=== PATIENT | male | born 1950 | race Caucasian/White ===

== ENCOUNTER → 2016-12-07 | Outpatient (CLI) | payer OTHER ==
[~2016-12-07] MED LIST: CIAL2.5T PO; SIMV40TA2 PO; TAMS0.4C2 PO
--- NOTE | 2016-12-07 10:46 | REP ---
CERVICAL SPINE, SEVEN VIEWS: HISTORY: Spondylosis. There is no acute fracture. There is narrowing of the C4-5 through C6-7 intervertebral discs consistent with disc degeneration. Osteophytes are present on C3-6. There is narrowing of the right C3-5 and left C3-6 neural foramina secondary to uncinate process hypertrophy. There are 3 mm of anterior subluxation of C3 on 4. This is unchanged with flexion and extension. There are 2 mm of retrolisthesis of C4 on 5. This reduces with flexion and returns to 2 mm with extension. There is loss of the normal lordotic curve. IMPRESSION: Degenerative change as described above. Signed by Minor Smith MD 12/07/2016 10:53 A
--- NOTE | 2016-12-07 10:48 | REP ---
LUMBAR SPINE, SEVEN VIEWS: HISTORY: Spondylosis. There is no acute fracture or subluxation. There is an old compression fracture of the L1 vertebral body with minimal height loss. There is no acute fracture or subluxation. The lumbar intervertebral discs are decreased in height. Vacuum phenomenon is present at the L2-3, L4-5 and L5-S1 levels. These findings are consistent with disc degeneration. There is narrowing of the L4-5 and L5-S1 facet joints with associated sclerosis. IMPRESSION: Degenerative change as described above. Signed by Minor Smith MD 12/07/2016 10:53 A
== END ==
LOC: M RAD 10:06
PROVIDERS: ATTEND Neurological Surgery
DX: M47.892 Other spondylosis, cervical region (principal)

== ENCOUNTER → 2016-12-08 | Outpatient (REF) | payer OTHER | LOC: M LAB REF 16:28 | PROVIDERS: ATTEND Podiatrist Foot & Ankle Surgery | DX: M67.479 Ganglion, unspecified ankle and foot (principal) ==

== ENCOUNTER → 2016-12-08 | Outpatient (REF) | payer OTHER ==
[2016-12-08 16:07] LABS: ALBUMIN 3.7 GM/DL (3.2-5.2); ALBUMIN/GLOBULIN RATIO 1.19 (1.00-1.93); ALKALINE PHOSPHATASE 61 U/L (45-117); ALT/SGPT 32 U/L (12-78); ANION GAP 7 MEQ/L (8-16); AST/SGOT 16 U/L (15-37); BILIRUBIN,DIRECT 0.1 MG/DL (0.0-0.2); BILIRUBIN,TOTAL 0.5 MG/DL (0.2-1.0); BLOOD UREA NITROGEN 16 MG/DL (7-18); CALCIUM LEVEL 8.7 MG/DL (8.8-10.2); CARBON DIOXIDE LEVEL 28 MEQ/L (21-32); CHLORIDE LEVEL 108 MEQ/L (98-107); CREATININE FOR GFR 1.02 MG/DL (0.70-1.30); GLOMERULAR FILTRATION RATE > 60.0 (>49); GLUCOSE, FASTING 94 MG/DL (80-110); PHOSPHORUS LEVEL 3.2 MG/DL (2.5-4.9); POTASSIUM SERUM 4.6 MEQ/L (3.5-5.1); SODIUM LEVEL 143 MEQ/L (136-145); TOTAL PROTEIN 6.8 GM/DL (6.4-8.2)
[2016-12-08 16:10] LABS: MEAN CORPUSCULAR HGB CONC 33.5 g/dl (32.0-36.5); MEAN CORPUSCULAR VOLUME 89.5 fl (80.0-96.0); RED CELL DISTRIBUTION WIDTH 13.5 % (11.5-14.5); WHITE BLOOD COUNT 4.8 K/mm3 (4.0-10.0)
== END ==
LOC: M LABDRAW1 15:29
PROVIDERS: ATTEND Podiatrist Foot & Ankle Surgery
DX: B35.1 Tinea unguium (principal); Z79.899 Other long term (current) drug therapy

== ENCOUNTER → 2017-01-11 | Outpatient (CLI) | payer OTHER ==
--- NOTE | 2017-01-19 00:30 | ECWPNPC ---
PATIENT NAME: FAREED METZ : 1950 GENDER: MALE VISIT DATE: 01/11/2017 DISCHARGE DATE: 01/11/17 1228 VISIT LOCKED DATE TIME: PHYSICIAN: DESTINEE GREENBERG RESOURCE: DESTINEE GREENBERG REASON FOR APPOINTMENT 1. ARTHRITIS BACK/ARM HISTORY OF PRESENT ILLNESS NEW PATIENT CONSULT: HERE FOR INITIAL EVALUATION OF LOW BACK PAIN AND NECK PAIN.FELL FROM 5FT ONTO BACK IN FEBRUARY 2016.INTERMITTENT LEFT ARM NUMBNESS.PAIN IS AGGREVATED BY ELEVATION OF ARMS.TURNING HEAD ALSO BOTHERS HIM.NECK PAIN IS RELIEVED BY CRACKING NECK. RATING PAIN VAS 1/10.PAIN IS DESCRIBED INTERMITTENT. WHEN DID YOUR PAIN FIRST START? . BRIEFLY DESCRIBE HOW YOUR PAIN STARTED? . HOW DOES YOUR PAIN CHANGE WITH TIME? . DOES YOUR PAIN AWAKEN YOU FROM SLEEP? . HOW MANY HOURS OF SLEEP DO YOU NORMALLY GET? . ANY DIAGNOSTIC TESTING? . FACILITY WHERE TESTS WERE DONE? ____. PAIN TREATMENT TREATMENT YES CANCER HAVE YOU EVER HAD ANY TYPE OF CANCER?NO NO. PAIN SCREENING: PATIENT HAS A COMPLAINT OF ACUTE OR CHRONIC PAIN YES FALL RISK SCREENING: SCREENING :NO FALLS IN THE PAST YEAR KIM INVENTORY: QUESTIONNAIRE ASSESSEDTBD SCORE VALUE CALCULATED TBD CURRENT MEDICATIONS TAKING SIMVASTATIN 40 MG TABLET 1 TABLET IN THE EVENING ORALLY ONCE A DAY TAKING CIALIS 5 MG TABLET 1 TABLET ORALLY TAKING VITAMIN C 250 MG TABLET CHEWABLE DIRECTED ORALLY DAILY TAKING CALCIUM 600 MG TABLET 1 TABLET WITH MEALS ORALLY TWICE A DAY TAKING MULTIVITAMINS CAPSULE 1 TABLET ORALLY DAILY TAKING FLOMAX 0.4 MG CAPSULE 1 CAPSULE 30 MINUTES AFTER THE SAME MEAL EACH DAY ORALLY ONCE A DAY TAKING TERBINAFINE HCL 250 MG TABLET 1 TABLET TAKES 30 MG ORALLY ONCE A DAY TAKING FISH OIL 1200 MG CAPSULE 1 CAPSULE ORALLY ONCE A DAY TAKING OMEPRAZOLE 20 MG CAPSULE DELAYED RELEASE 2 CAPSULES ORALLY ONCE A DAY MEDICATION LIST REVIEWED AND RECONCILED WITH THE PATIENT PAST MEDICAL HISTORY HYPERCHOLESTEROL ASTHMA FELL 02/2016 BACK PAIN NECK PAIN ARTHRITIS ALLERGIES SHELLFISH: ANAPHYLAXIS: ALLERGY SURGICAL HISTORY LEFDT INGUINIAL HERNIA REPAIR 1989 AND 1999 BUNIONECTOMY 1989 FAMILY HISTORY FATHER: , DIAGNOSED WITH HEART DISEASE MOTHER: 2 BROTHER(S) . 4DAUGHTER(S) - HEALTHY. SOCIAL HISTORY GENERAL: PAIN CLINIC PFS, CLERGY, PUBLIC HEALTH REFERRALS PFS REFERRAL NEEDED?NO CLERGY REFERRAL NEEDED?NO PUBLIC HEALTH REFERRAL NEEDED?NO WAS THE PROVIDER NOTIFIED OF ANY PERTINENT INFO?NO PSYCHOLOGICAL HX TREATMENTNO ALCOHOL OR DRUG TREATMENTNO PATIENT: DENIES USE OF ANY ILLEGAL SUBSTANCE INCLUDING MARIJUANA OR COCAINE, DENIES RECREATIONAL DRUG USE, DENIES ABUSE OR MISUSE OF ANY MEDICATION. ADVANCED DIRECTIVES HEALTH CARE PROXY?NO POWER OF BACK HOE OPERATOR?NO SCREENING/ASSESSMENT TOOL NUTRITION ASSESSEDYES ARE YOU ON ANY SPECIAL DIET?NO ANY SIGNIFICANT CHANGES RELATED TO EATING, WEIGHT GAIN/LOSS, OR BOWEL HABITS?NO IF YES, IS YOUR PRIMARY CARE PROVIDER AWARE OF THIS?NO SPECIAL NEEDS LEVEL OF CARE? SELF , GLASSES: NO , CONTACTS: NO , HEARING AIDS: NO , DENTURES: NO , WALKER: NO , CANE: NO , WHEELCHAIR: NO , REFERRALS NEEDED: NO . TOBACCO USE ARE YOU A:NONSMOKER VAPORNO E-CIGARETTENO CAFFEINE CAFFEINE USE?NO RECREATIONAL DRUG USE DRUG USE?NO PATIENT DENIES ABUSE OR MISSUSED OF ANY MEDICATION. PATIENT DENIES USE OF ANY ILLEGAL SUBSTANCE INCLUDING MARIJUANA OR COCAINE. REVIEW OF SYSTEMS CONSTITUTIONAL: ANY CHANGE IN YOUR MEDICAL CONDITION? NO . CHILLS NO . FEVER NO . INFECTION: DO YOU HAVE NEW INFECTIONS? NO . DO YOU HAVE HISTORY OF MRSA? NO . MUSCULOSKELETAL: ANY NEW PATTERNS OF PAIN OR NUMBNESS? NO . SYTEMIC LUPUS NO . GASTROENTEROLOGY: ANY NEW CHANGE IN BOWEL CONTROL? NO . BARRETTS ESOPHAGUS NO . CIRRHOSIS NO . HEPATITIS NO . LIVER FAILURE NO . ACID REFLUX NO . UNEXPLAINED WEIGHT LOSS NO . GENITOURINARY: ANY NEW CHANGE IN BLADDER CONTROL? NO . IS THERE A CHANCE YOU COULD BE ? NO . HEMATOLOGY/LYMPH: DO YOU TAKE ANY BLOOD THINNERS? (FOR EXAMPLE- COUMADIN, PLAVIX, AGGRENOX, PLATEL, PRADAXA, OR XARELTO) NO . WHEN WAS YOUR LAST DOSE? DATE: TIME: . LOW PLATELET COUNT NO . SICKLE CELL DISEASE NO . VON WILLIEBRANDS NO . FACTOR V LEIDEN NO . THALLASEMIA NO . ANEMIA NO . EASY BRUISING NO . NEUROLOGY: HAVE YOU FALLEN IN THE PAST 6 MONTHS? YES . ANY NEW EXTREMITY NUMBNESS OR WEAKNESS? NO . HEAD INJURY NO . DEMENTIA NO . CEREBRAL PALSY NO . MULTIPLE SCLEROSIS NO . DIZZINESS NO . HEADACHE NO . STROKES NO . VERTIGO NO . CARDIOLOGY: DO YOU HAVE A PACEMAKER OR DEFIBRILLATOR? NO . ANGINA NO . HEART ATTACK NO . HEART SURGERY NO . CONGESTIVE HEART FAILURE/FLUID OVERLOAD NO . CHEST PAIN NO . HIGH BLOOD PRESSURE NO . IRREGULAR HEART BEAT NO . RESPIRATORY: HAVE YOU BEEN SICK IN THE PAST WEEK? NO . FEVER NO . FLU LIKE SYMPTOMS? NO . CPAP NO . BYPAP NO . ASTHMA YES . EMPHYSEMA NO . CHRONIC LUNG DISEASES NO . SHORTNESS OF BREATH ON EXERTION NO . DO YOU USE ANY TYPE OF TOBACCO (SMOKE, SMOKELESS, CHEW)? NO . COUGH NO . SNORING NO . INTEGUMENTARY: DO YOU HAVE ANY RASHES OR OPEN SORES? NO . ALLERGIC/IMMUNO: ARE YOU ALLERGIC TO SHELLFISH OR IV DYE? YES . ANY NEW ALLERGIES? NO . PSYCHIATRIC: DO YOU HAVE THOUGHTS OF HURTING YOURSELF OR SOMEONE ELSE? NO . ARE YOU ABUSED, NEGLECTED, OR IN AN UNSAFE ENVIRONMENT? NO . ENDOCRINOLOGY: ARE YOU DIABETIC? NO . THYROID DISORDER NO . OTHER: DO YOU NEED ANY PRESCRIPTIONS? NO . IF YES, PLEASE LIST: ____ . ANY NEW PROBLEMS WITH YOUR MEDICATIONS? NO . WHEN DID YOU LAST EAT? ____ . WHEN DID YOU LAST DRINK? ____ . WHAT DID YOU LAST DRINK? ____ . NAME OF PERSON DRIVING YOU HOME? ____ . DO YOU HAVE ANY OTHER QUESTIONS OR CONCERNS NO . REVIEWED BY: PROVIDER: DESTINEE DAWSON . VITAL SIGNS WT 174.6 LBS, HT 66", BMI 28.18 INDEX, BP 138/83 MM HG, HR 86 /MIN, RR 16 /MIN, TEMP 97.1 F, OXYGEN SAT % 96, NA INITIALS TL 1117, REVIEWED BY: CS. EXAMINATION CERVICAL SPINE/NECK: C SPINE EXAM:EPISODE OF NUMBNESS AND TINGLING MORE IN ULNAR NERVE DISTRIBUTION OPPOSED TO CERVICAL.. RANGE OF MOTION OF NECK:NORMAL IN ALL DIRECTIONS. MOTOR STRENGTH:NORMAL. VERTEBRAL SPINE TENDERNESS:ABSENT. 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 [facility]:NEUROPATHY LEFT ARM AFTER FALL INJURY [id number] DO LEFT ARM NCS PROCEDURE CODES FA211 ESTABILISHED PATIENT [facility] CHARGE DISPOSITION & COMMUNICATION FOLLOW UP 6 WEEKS (REASON: PLEASE GET CERVICAL MRI [facility] AND PUT ON MY DESK) ELECTRONICALLY SIGNED BY EUNICE DUBOSE ON 01/18/2017 AT 07:40 PM EST DISCLAIMER : THIS IS A VISIT SUMMARY EXTRACTED FROM THE [employer] CHART. IT IS NOT A COPY OF THE [employer] PROGRESS NOTE. TERE
== END ==
LOC: M PAIN 11:20
PROVIDERS: ATTEND Nurse Practitioner Family
DX: G89.21 Chronic pain due to trauma (principal); G56.92 Unspecified mononeuropathy of left upper limb; M54.2 Cervicalgia; E78.00 Pure hypercholesterolemia, unspecified; J45.909 Unspecified asthma, uncomplicated; M19.90 Unspecified osteoarthritis, unspecified site; Z91.013 Allergy to seafood; Z79.899 Other long term (current) drug therapy

== ENCOUNTER → 2017-01-19 | Outpatient (REF) | payer OTHER ==
[2017-01-19 12:03] LABS: MEAN CORPUSCULAR HEMOGLOBIN 30.4 pg (27.0-33.0); MEAN CORPUSCULAR HGB CONC 33.4 g/dl (32.0-36.5); MEAN CORPUSCULAR VOLUME 91.2 fl (80.0-96.0); RED CELL DISTRIBUTION WIDTH 12.7 % (11.5-14.5); WHITE BLOOD COUNT 4.8 K/mm3 (4.0-10.0)
[2017-01-19 12:36] LABS: ALBUMIN 3.9 GM/DL (3.2-5.2); ALKALINE PHOSPHATASE 58 U/L (45-117); ALT/SGPT 32 U/L (12-78); ANION GAP 7 MEQ/L (8-16); AST/SGOT 17 U/L (15-37); BILIRUBIN,DIRECT 0.1 MG/DL (0.0-0.2); BILIRUBIN,TOTAL 0.4 MG/DL (0.2-1.0); BLOOD UREA NITROGEN 17 MG/DL (7-18); CALCIUM LEVEL 8.8 MG/DL (8.8-10.2); CARBON DIOXIDE LEVEL 28 MEQ/L (21-32); CHLORIDE LEVEL 106 MEQ/L (98-107); GLOMERULAR FILTRATION RATE > 60.0 (>49); GLUCOSE, FASTING 107 MG/DL (80-110); PHOSPHORUS LEVEL 3.3 MG/DL (2.5-4.9); POTASSIUM SERUM 4.3 MEQ/L (3.5-5.1); SODIUM LEVEL 141 MEQ/L (136-145); TOTAL PROTEIN 6.9 GM/DL (6.4-8.2)
== END ==
LOC: M LABDRAW1 11:50
PROVIDERS: ATTEND Podiatrist Foot & Ankle Surgery
DX: Z79.899 Other long term (current) drug therapy (principal)

== ENCOUNTER → 2017-02-22 | Outpatient (CLI) | payer OTHER ==
--- NOTE | 2017-02-23 01:22 | ECWPNPC ---
PATIENT NAME: FAREED METZ : 1950 GENDER: MALE VISIT DATE: 02/22/2017 DISCHARGE DATE: 02/22/17 1132 VISIT LOCKED DATE TIME: PHYSICIAN: DESTINEE GREENBERG RESOURCE: DESTINEE GREENBERG REASON FOR APPOINTMENT 1. ARTHRITIS BACK/ARM HISTORY OF PRESENT ILLNESS HISTORY OF PRESENT ILLNESS: HERE FOR F/U OF PERSISTENT LEFT NECK PAIN AND INTERMITTENT LEFT ARM NUMBNESS.LEFT NECK HURTS WITH TURNING HEAD LEFT AND RELIEVED WITH CRACKING NECK.USING GABAPENTIN 300MG AT NIGHT AND FINDS IT SOMEWHAT HELPFUL.WAS TAKING GABAPENTIN 300MG TID 2 WEEKS BEFORE HE CAME HERE FOR CONSULT ONE MONTH AGO PRESCRIBED BY PRIMARY CARE.NCS I ORDERED AT LAST VISIT IS ON HOLD [facility] DOES NOT ACCEPT HIS INSURANCE.HE WILL BE CHECKING INTO THIS.RATING PAIN VAS 1/10. FALL RISK SCREENING: SCREENING :NO FALLS IN THE PAST YEAR CURRENT MEDICATIONS TAKING SIMVASTATIN 40 MG TABLET 1 TABLET IN THE EVENING ORALLY ONCE A DAY TAKING CIALIS 5 MG TABLET 1 TABLET ORALLY TAKING VITAMIN C 250 MG TABLET CHEWABLE DIRECTED ORALLY DAILY TAKING CALCIUM 600 MG TABLET 1 TABLET WITH MEALS ORALLY TWICE A DAY TAKING MULTIVITAMINS CAPSULE 1 TABLET ORALLY DAILY TAKING FLOMAX 0.4 MG CAPSULE 1 CAPSULE 30 MINUTES AFTER THE SAME MEAL EACH DAY ORALLY ONCE A DAY TAKING TERBINAFINE HCL 250 MG TABLET 1 TABLET ORALLY ONCE A DAY TAKING FISH OIL 1200 MG CAPSULE 1 CAPSULE ORALLY ONCE A DAY TAKING OMEPRAZOLE 20 MG CAPSULE DELAYED RELEASE 2 CAPSULES ORALLY ONCE A DAY TAKING GABAPENTIN 300 MG CAPSULE 1 CAPSULE ORALLY ONE AT BEDTIME TAKING PREDNISONE TAPER 1 TAB ORAL DIRECTED TAKING LEVOFLOXACIN 500 MG TABLET 1 TABLET ORALLY ONCE A DAY FOR 7 DAYS TAKING VENTOLIN HFA 108 (90 BASE) MCG/ACT AEROSOL SOLUTION 2 PUFFS NEEDED INHALATION EVERY 4 HRS MEDICATION LIST REVIEWED AND RECONCILED WITH THE PATIENT PAST MEDICAL HISTORY HYPERCHOLESTEROL ASTHMA FELL 02/2016 BACK PAIN NECK PAIN ARTHRITIS ALLERGIES SHELLFISH: ANAPHYLAXIS: ALLERGY SURGICAL HISTORY LEFDT INGUINIAL HERNIA REPAIR 1989 AND 1999 BUNIONECTOMY 1989 SOCIAL HISTORY GENERAL: TOBACCO USE ARE YOU A:: NEVER SMOKER . ALCOHOL SCREENING POINTS: 4, INTERPRETATION: POSITIVE. RECREATIONAL DRUG USE DENIES. CAFFEINE NONE. SEXUAL HX HAD SEX IN THE LAST 12 MONTHS (VAGINAL, ORAL, OR ANAL)?: YES, WITH: WOMEN ONLY, USE PROTECTION?: NO, HAVE YOU EVER HAD AN STD?: NO. OCCUPATION: RETIRED. DIET: REGULAR. EXERCISE: NO REGULAR EXERCISE. MARITAL STATUS: . SIKHISM: NO EVANGELICAL BELIEFS THAT WOULD IMPACT HEALTH CARE, NO EVANGELICAL PREFERENCE. ADVANCED DIRECTIVES HEALTH CARE PROXY?NO INFORMATION PROVIDED. HOSPITALIZATION/MAJOR DIAGNOSTIC PROCEDURE NO HOSPITALIZATION HISTORY. REVIEW OF SYSTEMS CONSTITUTIONAL: ANY CHANGE IN YOUR MEDICAL CONDITION? NO . CHILLS NO . FEVER NO . INFECTION: DO YOU HAVE NEW INFECTIONS? NO . DO YOU HAVE HISTORY OF MRSA? NO . MUSCULOSKELETAL: ANY NEW PATTERNS OF PAIN OR NUMBNESS? NO . GASTROENTEROLOGY: ANY NEW CHANGE IN BOWEL CONTROL? NO . GENITOURINARY: ANY NEW CHANGE IN BLADDER CONTROL? NO . IS THERE A CHANCE YOU COULD BE ? NO . HEMATOLOGY/LYMPH: DO YOU TAKE ANY BLOOD THINNERS? (FOR EXAMPLE- COUMADIN, PLAVIX, AGGRENOX, PLATEL, PRADAXA, OR XARELTO) NO . WHEN WAS YOUR LAST DOSE? DATE: TIME: . NEUROLOGY: HAVE YOU FALLEN IN THE PAST 6 MONTHS? NO . ANY NEW EXTREMITY NUMBNESS OR WEAKNESS? NO . CARDIOLOGY: DO YOU HAVE A PACEMAKER OR DEFIBRILLATOR? NO . RESPIRATORY: HAVE YOU BEEN SICK IN THE PAST WEEK? NO . FEVER NO . FLU LIKE SYMPTOMS? NO . COUGH NO . INTEGUMENTARY: DO YOU HAVE ANY RASHES OR OPEN SORES? NO . ALLERGIC/IMMUNO: ARE YOU ALLERGIC TO SHELLFISH OR IV DYE? NO . ANY NEW ALLERGIES? NO . PSYCHIATRIC: DO YOU HAVE THOUGHTS OF HURTING YOURSELF OR SOMEONE ELSE? NO . ARE YOU ABUSED, NEGLECTED, OR IN AN UNSAFE ENVIRONMENT? NO . ENDOCRINOLOGY: ARE YOU DIABETIC? NO . OTHER: DO YOU NEED ANY PRESCRIPTIONS? NO . IF YES, PLEASE LIST: ____ . ANY NEW PROBLEMS WITH YOUR MEDICATIONS? NO . WHEN DID YOU LAST EAT? ____ . WHEN DID YOU LAST DRINK? ____ . WHAT DID YOU LAST DRINK? ____ . NAME OF PERSON DRIVING YOU HOME? ____ . DO YOU HAVE ANY OTHER QUESTIONS OR CONCERNS NO . REVIEWED BY: PROVIDER: DESTINEE DAWSON . VITAL SIGNS WT 170.8 LBS, HT 66", BMI 27.56 INDEX, BP 148/90 MM HG, HR 69 /MIN, RR 16 /MIN, TEMP 98.4 F, OXYGEN SAT % 93%, NA INITIALS SC 11:20, REVIEWED BY: CINTIA. EXAMINATION CERVICAL SPINE/NECK: C SPINE EXAM:EPISODE OF NUMBNESS AND TINGLING MORE IN ULNAR NERVE DISTRIBUTION OPPOSED TO CERVICAL.. RANGE OF MOTION OF NECK:NORMAL IN ALL DIRECTIONS. MOTOR STRENGTH:NORMAL. VERTEBRAL SPINE TENDERNESS:ABSENT. MYOFASCIAL TRIGGER POINTS:ELICITED IN LEFT PROXIMAL STERNOCLEIDOMASTOID AND SCAPULAR REGION.. DIAGNOSTIC DATA-MRI CERVICAL [id number]-[id number]. 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 MYALGIA TRIGGER POINT 1-2 DESTINEE OCONNELL 02/22/2017 11:18:50 AM > LEFT NECK.SCAPULAR REFERRAL TO:PHYSIOTHERAPY REASON:2X WK X6WK LEFT NECK /SCAPULA-MYOFASCIAL RELEASE PREVENTIVE MEDICINE PAIN CLINIC TEACHING: PROCEDURE TEACHING PRE TRIGGER POINT INJECTION INSTRUCTIONS REVIEWED WITH PT. VERBALIZED UNDERSTANDING. PRINTED INFORMATION FROM [facility] PT EDUCATION REGARDING TRIGGER POINT INJECTION PROCEDURE DISCUSSED WITH PT. VERBALIZED UNDERSSTANDING.. PROCEDURE CODES FA211 ESTABILISHED PATIENT [facility] CHARGE DISPOSITION & COMMUNICATION FOLLOW UP 2WK POST (REASON: TPI LEFT NECK) ELECTRONICALLY SIGNED BY EUNICE DUBOSE ON 02/22/2017 AT 03:55 PM EDT DISCLAIMER : THIS IS A VISIT SUMMARY EXTRACTED FROM THE [employer] CHART. IT IS NOT A COPY OF THE [employer] PROGRESS NOTE. TERE
== END ==
LOC: M PAIN 10:40
PROVIDERS: ATTEND Nurse Practitioner Family
DX: G56.92 Unspecified mononeuropathy of left upper limb (principal); M79.1 Myalgia; Z79.899 Other long term (current) drug therapy; Z91.013 Allergy to seafood; E78.00 Pure hypercholesterolemia, unspecified; J45.909 Unspecified asthma, uncomplicated

== ENCOUNTER → 2017-03-09 | Outpatient (CLI) | payer OTHER ==
[~2017-03-09] MED LIST changes: +BUPIVACAINE HCL 0.25% 10 ML VIAL As Ordered ONE; +BUPIVACAINE HCL 0.25% 30 ML VIAL As Ordered ONE; +TRIAMCINOLONE ACETONIDE SUSP 40 MG/ML VIAL (J3301) As Ordered ONE
--- NOTE | 2017-03-14 23:36 | ECWPNPC ---
PATIENT NAME: FAREED METZ : 1950 GENDER: MALE VISIT DATE: 03/09/2017 DISCHARGE DATE: 03/09/17 1014 VISIT LOCKED DATE TIME: PHYSICIAN: ADOLFO HOANG RESOURCE: ADOLFO HOANG REASON FOR APPOINTMENT 1. TPI HISTORY OF PRESENT ILLNESS HISTORY OF PRESENT ILLNESS: PAIN THE PATIENT DESCRIBES THE PAIN... FALL RISK SCREENING: SCREENING :NO FALLS IN THE PAST YEAR CURRENT MEDICATIONS TAKING SIMVASTATIN 40 MG TABLET 1 TABLET IN THE EVENING ORALLY ONCE A DAY, NOTES: 03/08/17 09 TAKING CIALIS 5 MG TABLET 1 TABLET ORALLY NEEDDED, NOTES: NONE LATELY TAKING VITAMIN C 250 MG TABLET CHEWABLE DIRECTED ORALLY DAILY, NOTES: 03/08/17899 TAKING CALCIUM 600 MG TABLET 1 TABLET WITH MEALS ORALLY ONCE A DAY, NOTES: 03/08/17899 TAKING MULTIVITAMINS CAPSULE 1 TABLET ORALLY DAILY, NOTES: 03/08/17899 TAKING FLOMAX 0.4 MG CAPSULE 1 CAPSULE 30 MINUTES AFTER THE SAME MEAL EACH DAY ORALLY ONCE A DAY, NOTES: 03/08/17899 TAKING FISH OIL 1200 MG CAPSULE 1 CAPSULE ORALLY ONCE A DAY, NOTES: 03/08/17899 TAKING OMEPRAZOLE 20 MG CAPSULE DELAYED RELEASE 1 CAPSULE ORALLY ONCE A DAY, NOTES: 03/08/17899 TAKING VENTOLIN HFA 108 (90 BASE) MCG/ACT AEROSOL SOLUTION 2 PUFFS NEEDED INHALATION EVERY 4 HRS, NOTES: 03/08/17 TAKING GABAPENTIN 300 MG CAPSULE 1-2 ORALLY ONE AT BEDTIME AND ONE DURING DAY PRN MDD2, NOTES: 03/08/17 2200 DISCONTINUED TERBINAFINE HCL 250 MG TABLET 1 TABLET ORALLY ONCE A DAY DISCONTINUED PREDNISONE TAPER 1 TAB ORAL DIRECTED DISCONTINUED LEVOFLOXACIN 500 MG TABLET 1 TABLET ORALLY ONCE A DAY FOR 7 DAYS MEDICATION LIST REVIEWED AND RECONCILED WITH THE PATIENT PAST MEDICAL HISTORY HYPERCHOLESTEROL ASTHMA FELL 02/2016 BACK PAIN NECK PAIN ARTHRITIS ALLERGIES SHELLFISH: ANAPHYLAXIS: ALLERGY SOCIAL HISTORY GENERAL: PAIN CLINIC PFS, CLERGY, PUBLIC HEALTH REFERRALS CLERGY REFERRAL NEEDED?NO WAS THE PROVIDER NOTIFIED OF ANY PERTINENT INFO?NO PFS REFERRAL NEEDED?NO PUBLIC HEALTH REFERRAL NEEDED?NO PATIENT: ____. REVIEW OF SYSTEMS CONSTITUTIONAL: ANY CHANGE IN YOUR MEDICAL CONDITION? NO . CHILLS NO . FEVER NO . INFECTION: DO YOU HAVE NEW INFECTIONS? NO . DO YOU HAVE HISTORY OF MRSA? NO . MUSCULOSKELETAL: ANY NEW PATTERNS OF PAIN OR NUMBNESS? NO . GASTROENTEROLOGY: ANY NEW CHANGE IN BOWEL CONTROL? NO . GENITOURINARY: ANY NEW CHANGE IN BLADDER CONTROL? NO . IS THERE A CHANCE YOU COULD BE ? NO . HEMATOLOGY/LYMPH: DO YOU TAKE ANY BLOOD THINNERS? (FOR EXAMPLE- COUMADIN, PLAVIX, AGGRENOX, PLATEL, PRADAXA, OR XARELTO) NO . WHEN WAS YOUR LAST DOSE? DATE: TIME: . NEUROLOGY: HAVE YOU FALLEN IN THE PAST 6 MONTHS? NO . ANY NEW EXTREMITY NUMBNESS OR WEAKNESS? NO . CARDIOLOGY: DO YOU HAVE A PACEMAKER OR DEFIBRILLATOR? NO . RESPIRATORY: HAVE YOU BEEN SICK IN THE PAST WEEK? NO . FEVER NO . FLU LIKE SYMPTOMS? NO . COUGH NO . INTEGUMENTARY: DO YOU HAVE ANY RASHES OR OPEN SORES? NO . ALLERGIC/IMMUNO: ARE YOU ALLERGIC TO SHELLFISH OR IV DYE? YES SHELLFISH-ANYLPHYLAXIS . ANY NEW ALLERGIES? NO . PSYCHIATRIC: DO YOU HAVE THOUGHTS OF HURTING YOURSELF OR SOMEONE ELSE? NO . ARE YOU ABUSED, NEGLECTED, OR IN AN UNSAFE ENVIRONMENT? NO . ENDOCRINOLOGY: ARE YOU DIABETIC? NO . OTHER: DO YOU NEED ANY PRESCRIPTIONS? NO . IF YES, PLEASE LIST: ____ . ANY NEW PROBLEMS WITH YOUR MEDICATIONS? NO . WHEN DID YOU LAST EAT? ___03/08/17 1800 . WHEN DID YOU LAST DRINK? ____03/09/17 0400 . WHAT DID YOU LAST DRINK? ____WATER . NAME OF PERSON DRIVING YOU HOME? ____MARY . DO YOU HAVE ANY OTHER QUESTIONS OR CONCERNS NO . REVIEWED BY: PROVIDER: . VITAL SIGNS WT 169.2 LBS, HT 66", BMI 27.31 INDEX, BP 138/82 MM HG, HR 68 /MIN, RR 16 /MIN, TEMP 97.5 F, OXYGEN SAT % 94%, REVIEWED BY: MLF. ASSESSMENTS MYALGIA - M79.1 (PRIMARY) PROCEDURES PN TRIGGER POINT INJECTION WITH STEROIDS PRE PROCEDURE DIAGNOSIS 1. MYALGIA 2. PAIN AT LEFT SHOULDER AREA POST PROCEDURE DIAGNOSIS 1. MYALGIA 2. PAIN AT LEFT SHOULDER AREA PROCEDURE TRIGGER POINT INJECTION AT LEFT SHOULDER AREA SURGEON DR. ADOLFO HOANG WIRE FRAME DIPPER NONE ANESTHESIA LOCAL PRE PROCEDURE NOTE THE PATIENT HAS A HISTORY OF CHRONIC PAIN AT THE RIGHT SHOULDER AREA. I EVALUATE THE PATIENT AND REVIEWED THE CHART. THERE IS EVIDENCE OF BANDS OF TISSUE WITH RESTRICTION OF MOVEMENT AND PRESENCE OF TRIGGER POINT AT THE AFFECTED AREA. I WENT OVER THE RISKS, ALTERNATIVES, AND BENEFITS ASSOCIATED WITH THIS PROCEDURE. THE PATIENT WOULD LIKE TO PROCEED AND GIVE CONSENT TO PERFORMED THE PROCEDURE. THE PATIENT DENIES UNEXPLAINABLE WEIGHT LOSS, FEVER, CHILLS, OR NEW CHANGES IN URINARY OR BOWEL CONTROL DESCRIPTION OF PROCEDURE THE PATIENT WAS BROUGHT TO THE PROCEDURE ROOM AND PLACED IN THE SITTING POSITION. THE AREA WAS CLEANED WITH ALCOHOL. THE PROCEDURE WAS DONE USING ASEPTIC STERILE TECHNIQUE. I CHECKED LATERALITY AND THE LEVEL WHERE THE PROCEDURE WAS GOING TO BE PERFORMED WITH THE PATIENT AND THE SUPPORTING STAFF AT THE MOMENT OF THE TIME OUT IN THE PROCEDURE ROOM. USING A 25-GAUGE NEEDLE, TRIGGER POINTS WERE INJECTED AT THE LEFT SHOULDER AREA WITH A TOTAL OF 40 ML OF BUPIVACAINE 0.25% AND KENALOG 40 MG. THERE WAS NO EVIDENCE OF BLOOD, PARESTHESIA OR CEREBROSPINAL FLUID DURING THE PROCEDURE. THE PATIENT WAS SENT TO THE RECOVERY ROOM. THE PATIENT WAS MOVING THE EXTREMITIES AND DOING WELL. THERE WAS NO COMPLICATION DURING THE PROCEDURE POST PROCEDURE NOTE THE PATIENT WILL BE SEEN IN A FOLLOW UP IN THE NEXT FEW WEEKS. INSTRUCTIONS WERE GIVEN, QUESTIONS WERE ANSWERED, AND THE PATIENT EXPRESSED UNDERSTANDING AND AGREES WITH THE PLAN. I, ERICK CHILDRESS, DOCUMENTED THE ABOVE INFORMATION ACTING A SCRIBE FOR DR. HOANG. I, DR. HOANG, HAVE REVIEWED THE ABOVE DOCUMENT, SCRIBED BY ERICK CHILDRESS, AND I VERIFY THAT IT IS ACCURATE PROCEDURE CODES 55414 INJ TRIGGER POINT 11/28 [facility] DISPOSITION & COMMUNICATION FOLLOW UP 3 WEEKS ELECTRONICALLY SIGNED BY ADOLFO HOANG MD ON 03/14/2017 AT 09:46 PM EDT DISCLAIMER : THIS IS A VISIT SUMMARY EXTRACTED FROM THE [employer] CHART. IT IS NOT A COPY OF THE [employer] PROGRESS NOTE. TERE
== END ==
LOC: M PAIN 08:40
PROVIDERS: ATTEND Anesthesiology
DX: G89.29 Other chronic pain (principal); M79.1 Myalgia; M25.512 Pain in left shoulder; Z79.899 Other long term (current) drug therapy; E78.00 Pure hypercholesterolemia, unspecified; J45.909 Unspecified asthma, uncomplicated
CPT/HCPCS: 20552; J3301

== ENCOUNTER 2018-04-23 15:25 | Emergency (ER) | payer MEDICARE, OTHER ==
[2018-04-23] MEDS: LIDOCAINE 2% W/EPIN INJ 20ML **PRES FREE INJ (18:30)
[2018-04-23] MEDS: PERCOCET 5MG/325MG TAB PO (18:53)
== END 2018-04-23 20:46 | disposition home or self-care (01) ==
LOC: M ED 15:25
DX: S81.812A Laceration without foreign body, left lower leg, initial encounter (principal); W25.XXXA Contact with sharp glass, initial encounter; Y92.018 Other place in single-family (private) house as the place of occurrence of the external cause; E78.00 Pure hypercholesterolemia, unspecified; K21.9 Gastro-esophageal reflux disease without esophagitis; N40.0 Benign prostatic hyperplasia without lower urinary tract symptoms; Z79.899 Other long term (current) drug therapy
CPT/HCPCS: 73590

== ENCOUNTER → 2018-12-07 | Outpatient (REF) | payer MEDICARE, OTHER ==
[~2018-12-07] MED LIST changes: -BUPIVACAINE HCL 0.25% 10 ML VIAL As Ordered ONE; -BUPIVACAINE HCL 0.25% 30 ML VIAL As Ordered ONE; +FISH100049 PO; +OMEP40CA2 PO; -TRIAMCINOLONE ACETONIDE SUSP 40 MG/ML VIAL (J3301) As Ordered ONE
[2018-12-07 16:25] LABS: BASO % 0.7 % (0.0-1.0); EOS # 0.1 10^3/uL (0.0-0.50); EOS % 2.3 % (0.0-3.0); HEMATOCRIT 46.1 % (42.0-52.0); HEMOGLOBIN 15.6 g/dl (13.5-17.5); LYMPH # 1.8 10^3/uL (1.5-4.5); LYMPH % 30.2 % (24.0-44.0); MEAN CORPUSCULAR HEMOGLOBIN 30.2 pg (27.0-33.0); MEAN CORPUSCULAR HGB CONC 33.8 g/dl (32.0-36.5); MEAN CORPUSCULAR VOLUME 89.3 fl (80.0-96.0); MONO # 0.5 10^3/uL (0.0-0.8); NEUTROPHILS # 3.4 10^3/uL (1.8-7.7); NEUTROPHILS % 57.5 % (36.0-66.0); PLATELET COUNT, AUTOMATED 175 10^3/uL (150-450); RED BLOOD COUNT 5.16 10^6/uL (4.30-6.10)
[2018-12-07 16:38] LABS: ALBUMIN 3.8 GM/DL (3.2-5.2); ALT/SGPT 46 U/L (12-78); BILIRUBIN,TOTAL 0.5 MG/DL (0.2-1.0); BLOOD UREA NITROGEN 20 MG/DL (7-18); CALCIUM LEVEL 8.9 MG/DL (8.8-10.2); CARBON DIOXIDE LEVEL 24 MEQ/L (21-32); CHLORIDE LEVEL 105 MEQ/L (98-107); CHOLESTEROL LEVEL 213 MG/DL (<200); GLOMERULAR FILTRATION RATE > 60.0 (>49); GLUCOSE, FASTING 102 MG/DL (70-100); HDL CHOLESTEROL 50 MG/DL (>40); LDL CHOLESTEROL 136 MG/DL (<100); NON-HDL-C 163 MG/DL; POTASSIUM SERUM 4.3 MEQ/L (3.5-5.1); SODIUM LEVEL 140 MEQ/L (136-145); TOTAL PROTEIN 7.2 GM/DL (6.4-8.2); TRIGLYCERIDES LEVEL 134 MG/DL (<150)
== END ==
LOC: M LABDRAW1 15:55
PROVIDERS: ATTEND Physician Assistant
DX: E78.2 Mixed hyperlipidemia (principal); N40.0 Benign prostatic hyperplasia without lower urinary tract symptoms
CPT/HCPCS: 36415; 80053; 80061; 85025; G0103

== ENCOUNTER → 2019-01-04 | Outpatient (REF) | payer MEDICARE, BC ==
[2019-01-04 16:37] LABS: FREE T4 0.7 NG/DL (0.76-1.46); THYROID STIMULATING HORMONE 1.67 uIU/ML (0.358-3.740)
== END ==
LOC: M SFHCPLAZ 14:25
PROVIDERS: ATTEND Physician Assistant
DX: R68.89 Other general symptoms and signs (principal)
CPT/HCPCS: 36415; 84439; 84443; G0463

== ENCOUNTER → 2019-02-12 | Outpatient (REF) | payer MEDICARE, BC ==
[2019-02-12 19:21] LABS: FREE T4 0.69 NG/DL (0.76-1.46); THYROID STIMULATING HORMONE 1.78 uIU/ML (0.358-3.740)
== END ==
LOC: M LABDRAW1 17:35
PROVIDERS: ATTEND Physician Assistant
DX: R94.6 Abnormal results of thyroid function studies (principal)

== ENCOUNTER → 2019-03-12 | Outpatient (REF) | payer BC, MEDICARE ==
[2019-03-12 13:47] LABS: APPEARANCE, URINE HAZY (CLEAR); BACTERIA, URINE AUTO NEGATIVE (NEGATIVE); BILIRUBIN, URINE AUTO NEGATIVE (NEGATIVE); BLOOD, URINE BLOOD NEGATIVE (NEGATIVE); COLOR, URINE YELLOW (YELLOW); GLUCOSE, URINE (UA) AUTO NEGATIVE (NEGATIVE); KETONE, URINE AUTO NEGATIVE (NEGATIVE); LEUKOCYTE ESTERASE, URINE AUTO NEGATIVE (NEGATIVE); MUCUS, URINE SMALL (NEGATIVE); NITRITE, URINE AUTO NEGATIVE (NEGATIVE); PROTEIN, URINE AUTO NEGATIVE (NEGATIVE); RBC, URINE AUTO 1 /HPF (0-3); SPECIFIC GRAVITY URINE AUTO 1.019 (1.002-1.035); SQUAMOUS EPITHELIAL CELL UR AU 0 /HPF (0-6); UROBILINOGEN, URINE AUTO 0.2 mg/dL (0.0-2.0); WBC, URINE AUTO 0 /HPF (0-3)
== END ==
LOC: M SMT 13:06
PROVIDERS: ATTEND Nurse Practitioner Family
DX: N40.1 Benign prostatic hyperplasia with lower urinary tract symptoms (principal)
CPT/HCPCS: 51798; 81001; 87086; G0463

== ENCOUNTER → 2019-04-23 | Outpatient (REF) | payer MEDICARE, BC ==
[2019-04-23 19:42] LABS: ALBUMIN 4.2 GM/DL (3.2-5.2); ALT/SGPT 40 U/L (12-78); BILIRUBIN,TOTAL 0.5 MG/DL (0.2-1.0); BLOOD UREA NITROGEN 18 MG/DL (7-18); CALCIUM LEVEL 9.1 MG/DL (8.8-10.2); CARBON DIOXIDE LEVEL 28 MEQ/L (21-32); CHLORIDE LEVEL 105 MEQ/L (98-107); CHOLESTEROL LEVEL 190 MG/DL (<200); CHOLESTEROL RISK RATIO 3.518 (<5); CREATININE FOR GFR 0.84 MG/DL (0.70-1.30); GLOMERULAR FILTRATION RATE > 60.0 (>49); GLUCOSE, FASTING 103 MG/DL (70-100); HDL CHOLESTEROL 54 MG/DL (>40); LDL CHOLESTEROL 102 MG/DL (<100); NON-HDL-C 136 MG/DL; POTASSIUM SERUM 4.2 MEQ/L (3.5-5.1); SODIUM LEVEL 139 MEQ/L (136-145); TOTAL PROTEIN 7.2 GM/DL (6.4-8.2); TRIGLYCERIDES LEVEL 168 MG/DL (<150)
[2019-04-23 20:04] LABS: HEMATOCRIT 48.3 % (42.0-52.0); MEAN CORPUSCULAR HEMOGLOBIN 30.5 pg (27.0-33.0); MEAN CORPUSCULAR HGB CONC 33.1 g/dl (32.0-36.5); MEAN CORPUSCULAR VOLUME 92.2 fl (80.0-96.0); PLATELET COUNT, AUTOMATED 203 10^3/uL (150-450); RED BLOOD COUNT 5.24 10^6/uL (4.30-6.10); WHITE BLOOD COUNT 5.5 10^3/uL (4.0-10.0)
== END ==
LOC: M SFHCPLAZ 13:40
PROVIDERS: ATTEND Family Medicine
DX: E78.5 Hyperlipidemia, unspecified (principal); R53.82 Chronic fatigue, unspecified
CPT/HCPCS: 36415; 51798; 80053; 80061; 85027; G0463

== ENCOUNTER → 2019-10-15 | Outpatient (REF) | payer MEDICARE, BC ==
[~2019-10-15] MED LIST changes: -OMEP40CA2 PO; +OMEP40CA97 PO; -SIMV40TA2 PO; +SIMV40TA20 PO
[2019-10-15 19:40] LABS: SYNOVIAL FLUID COLOR YELLOW (YELLOW)
[2019-10-15 19:44] LABS: MUCIN CLOT TEST NO CLOT (4+); SOURCE, BODY FLUID OTHER
[2019-10-15 19:47] LABS: SOURCE, BODY FLUID GLUCOSE OTHER; SOURCE, BODY FLUID URIC ACID OTHER; URIC ACID, BODY FLUID 4.5 MG/DL (NOT ESTABLISHED)
[2019-10-15 19:49] LABS: CRYSTALS, BODY FLUID NONE SEEN (NONE SEEN); SOURCE, BODY FLUID CRYSTALS OTHER
[2019-10-16 08:48] LABS: BODY FLUID RHEUMATOID SCREEN NEGATIVE (NEGATIVE)
== END ==
LOC: M SFHCPLAZ 16:46
PROVIDERS: ATTEND Obstetrics & Gynecology
DX: M71.9 Bursopathy, unspecified (principal)
CPT/HCPCS: 20605; 82945; 83872; 84560; 86430; 87070; 87076; 87205; 89051; 89060; G0463

== ENCOUNTER → 2020-04-24 | Outpatient (REF) | payer MEDICARE, BC | LOC: M SFHCPLAZ 15:35 | DX: E78.1 Pure hyperglyceridemia (principal); Z13.1 Encounter for screening for diabetes mellitus; N52.9 Male erectile dysfunction, unspecified ==

== ENCOUNTER → 2020-05-18 | Outpatient (CLI) | payer MEDICARE, BC ==
--- NOTE | 2020-05-19 01:44 | REP ---
MRI RIGHT ANKLE: TECHNIQUE: Sagittal proton density, STIR, axial proton density fat-sat, T1, coronal proton density, STIR. The Achilles, anterior tibial, posterior tibial, flexor hallucis longus, flexor digitorum longus, and peroneal tendons are all intact. There is mild fluid surrounding the flexor hallucis longus tendon and distal peroneal tendons, which may represent mild tenosynovitis. There is increased signal involving the anterior talofibular ligament, having the appearance of an old tear. Calcaneofibular ligament and deltoid ligament are intact. Plantar tendon is intact. There is no plantar fasciitis. 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 There is an osteochondral lesion at the medial talar dome with severe cartilaginous thinning and subchondral marrow edema, measuring 6 x 9 mm. There is diffuse chondromalacia of the talar dome and adjacent distal end of tibia with mild subchondral marrow edema anteriorly in the distal tibia. Prominent vascular structures are seen centrally in the calcaneus. IMPRESSION: Suspect mild tenosynovitis of the flexor hallucis longus and peroneal tendons. Partial versus complete old tear anterior talofibular ligament. Osteochondral lesion medial talar dome 6 x 9 mm. 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 Electronically Signed by Riaz Nelson MD 05/20/2020 03:54 P
== END ==
LOC: M RAD 13:31
PROVIDERS: ATTEND Student in an Organized Health Care Education/Training Program
DX: M25.571 Pain in right ankle and joints of right foot (principal)

== ENCOUNTER → 2020-12-07 | Outpatient (REF) | payer MEDICARE, BC ==
[2020-12-07 15:58] LABS: HEMOGLOBIN A1c 5.9 %
== END ==
LOC: M SFHCPLAZ 10:28
PROVIDERS: ATTEND Family Medicine
DX: E88.81 Metabolic syndrome and other insulin resistance (principal); Z79.899 Other long term (current) drug therapy

== ENCOUNTER → 2020-12-31 | Outpatient (REF) | payer MEDICARE, BC | LOC: M SFHCPLAZ 09:53 | PROVIDERS: ATTEND Family Medicine | DX: D23.4 Other benign neoplasm of skin of scalp and neck (principal); L57.0 Actinic keratosis ==

== ENCOUNTER → 2021-03-06 | Outpatient (CLI) | payer SELFPAY | LOC: M LABSMTC 09:48 | PROVIDERS: ATTEND Pediatrics | DX: Z11.52 Encounter for screening for COVID-19 (principal) ==

== ENCOUNTER → 2021-03-11 | Outpatient (REF) | payer MEDICARE, BC ==
[~2021-03-11] MED LIST changes: +OMEP40CA4 PO; -OMEP40CA97 PO
== END ==
LOC: M SFHCPLAZ 09:57
PROVIDERS: ATTEND Family Medicine
DX: L57.0 Actinic keratosis (principal)

== ENCOUNTER → 2021-06-28 | Outpatient (CLI) | payer MEDICARE, BC | LOC: M LABSMTC 10:06 | PROVIDERS: ATTEND Pediatrics | DX: Z20.822 Contact with and (suspected) exposure to COVID-19 (principal) | CPT/HCPCS: C9803; U0003 ==

== ENCOUNTER → 2021-11-30 | Outpatient (REF) | payer MEDICARE, BC | LOC: M SFHCPLAZ 10:55 | PROVIDERS: ATTEND Family Medicine | DX: E78.5 Hyperlipidemia, unspecified (principal); R39.15 Urgency of urination; Z12.5 Encounter for screening for malignant neoplasm of prostate; Z13.1 Encounter for screening for diabetes mellitus ==

== ENCOUNTER → 2021-12-10 | Outpatient (CLI) | payer MEDICARE, BC ==
[2021-12-10 15:30] LABS: APPEARANCE, URINE CLEAR (CLEAR); BACTERIA, URINE AUTO NEGATIVE (NEGATIVE); BILIRUBIN, URINE AUTO NEGATIVE (NEGATIVE); BLOOD, URINE BLOOD NEGATIVE (NEGATIVE); COLOR, URINE YELLOW (YELLOW); GLUCOSE, URINE (UA) AUTO NEGATIVE (NEGATIVE); KETONE, URINE AUTO NEGATIVE (NEGATIVE); LEUKOCYTE ESTERASE, URINE AUTO NEGATIVE (NEGATIVE); MUCUS, URINE SMALL (NEGATIVE); NITRITE, URINE AUTO NEGATIVE (NEGATIVE); PROTEIN, URINE AUTO NEGATIVE (NEGATIVE); RBC, URINE AUTO 1 /HPF (0-3); SPECIFIC GRAVITY URINE AUTO 1.026 (1.002-1.035); SQUAMOUS EPITHELIAL CELL UR AU 0 /HPF (0-6); WBC, URINE AUTO 2 /HPF (0-3)
[2021-12-10 16:07] LABS: CHOLESTEROL RISK RATIO 3.358 (<5)
[2021-12-10 18:09] LABS: HEMOGLOBIN A1c > 14.0 %
== END ==
LOC: M PLALAB 11:34
PROVIDERS: ATTEND Family Medicine
DX: Z12.5 Encounter for screening for malignant neoplasm of prostate (principal); E78.5 Hyperlipidemia, unspecified; Z13.1 Encounter for screening for diabetes mellitus; R39.15 Urgency of urination; Z79.899 Other long term (current) drug therapy
CPT/HCPCS: 36415; 80061; 81001; 83036; G0103

== ENCOUNTER → 2022-01-06 | Outpatient (REF) | payer MEDICARE, BC | LOC: M SFHCPLAZ 09:42 | PROVIDERS: ATTEND Family Medicine | DX: R73.09 Other abnormal glucose (principal) ==

== ENCOUNTER → 2022-03-16 | Outpatient (CLI) | payer MEDICARE, BC ==
[2022-03-16 15:32] LABS: HEMOGLOBIN A1c 6.1 %
== END ==
LOC: M PLALAB 12:44
PROVIDERS: ATTEND Family Medicine
DX: R73.09 Other abnormal glucose (principal)

== ENCOUNTER → 2023-02-15 | Outpatient (CLI) | payer MEDICARE, BC ==
[2023-02-15 14:31] LABS: BASO % 0.5 % (0.0-1.0); EOS # 0.3 10^3/uL (0.0-0.5); EOS % 4.5 % (0.0-3.0); HEMATOCRIT 47.6 % (42.0-52.0); HEMOGLOBIN 15.2 g/dl (13.5-17.5); LYMPH % 32.7 % (24.0-44.0); MEAN CORPUSCULAR HEMOGLOBIN 29.2 pg (27.0-33.0); MEAN CORPUSCULAR HGB CONC 31.9 g/dl (32.0-36.5); MEAN CORPUSCULAR VOLUME 91.5 fl (80.0-96.0); MONO # 0.7 10^3/uL (0.0-0.8); MONO % 10.8 % (2.0-8.0); NEUTROPHILS # 3.2 10^3/uL (1.5-8.5); NEUTROPHILS % 51.3 % (36.0-66.0); PLATELET COUNT, AUTOMATED 191 10^3/uL (150-450); WHITE BLOOD COUNT 6.2 10^3/uL (4.0-10.0)
[2023-02-15 14:39] LABS: HEMOGLOBIN A1c 6.2 % (4.0-6.0)
[2023-02-15 15:00] LABS: ALBUMIN 3.8 G/DL (3.2-5.2); ALKALINE PHOSPHATASE 55 U/L (46-116); ALT/SGPT 46 U/L (7.0-40); AST/SGOT 29 U/L (<34); BILIRUBIN,TOTAL 0.8 MG/DL (0.3-1.2); BLOOD UREA NITROGEN 18 MG/DL (9-23); CARBON DIOXIDE LEVEL 28 MMOL/L (20-31); CHLORIDE LEVEL 104 MMOL/L (98-107); CREATININE FOR GFR 0.79 MG/DL (0.70-1.30); GLOMERULAR FILTRATION RATE > 60.0 (>42); GLUCOSE, FASTING 115 MG/DL (74-106); POTASSIUM SERUM 4.3 MMOL/L (3.5-5.1); SODIUM LEVEL 139 MMOL/L (136-145); TOTAL PROTEIN 6.8 G/DL (5.7-8.2)
== END ==
LOC: M PLALAB 09:27
PROVIDERS: ATTEND Student in an Organized Health Care Education/Training Program
DX: Z13.1 Encounter for screening for diabetes mellitus (principal); Z12.5 Encounter for screening for malignant neoplasm of prostate
CPT/HCPCS: 36415; 80053; 83036; 85025; G0103

== ENCOUNTER → 2024-08-21 | Outpatient (CLI) | payer MEDICARE, BC | LOC: M PLAIMG 10:59 | PROVIDERS: ATTEND Student in an Organized Health Care Education/Training Program | DX: M25.512 Pain in left shoulder (principal) ==